=== PATIENT | female | born 1965 | race African-American/Black ===

== ENCOUNTER → 2018-06-08 20:18 | Outpatient (CLI) | payer MEDICARE ==
[2014-03-29 05:56] VITALS: BMI 44.0
[~2018-06-08 20:18] MED LIST: CYCLOBENZAPRINE5 MG PO; LAMICTAL200 MG PO; LOTREL 10-40 M1 EACH PO; NEXIUM40 MG PO
== END | disposition home or self-care (01) ==
LOC: D.MAMMO 11:30
DX: Z12.31 Encounter for screening mammogram for malignant neoplasm of breast (principal)

== ENCOUNTER 2019-06-09 08:00 | Outpatient (CLI) | payer MEDICARE ==
[2014-03-29 05:56] VITALS: BMI 44.0
== END 2019-06-09 23:59 | disposition home or self-care (01) ==
LOC: D.MAMMO 08:00
PROVIDERS: ATTEND Clinical Nurse Specialist Family Health
DX: Z12.31 Encounter for screening mammogram for malignant neoplasm of breast (principal)

== ENCOUNTER 2019-08-04 09:00 | Outpatient (CLI) | payer MEDICARE, MEDICAID ==
[2014-03-29 05:56] VITALS: BMI 44.0
== END 2019-08-04 10:00 | disposition home or self-care (01) ==
LOC: D.MAMMO 09:00
PROVIDERS: ATTEND Clinical Nurse Specialist Family Health
DX: R92.8 Other abnormal and inconclusive findings on diagnostic imaging of breast (principal)